=== PATIENT | female | born 1980 | race Caucasian/White ===

== ENCOUNTER 2017-06-25 16:18 | Emergency (ER) | payer BC ==
[2017-06-25 17:15] VITALS: BP 111/74
--- NOTE | 2017-06-25 17:23 | UC ---
Throat Pain/Nasal Lucien HPI - HPI Summary HPI Summary: Pt presents with fever, sore throat, and body aches since yesterday. 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 Has been taking ibuprofen for her fever and discomfort. Denies sinus symptoms, cough, SOB, chest pain, abdominal pain, n/v/d/c. - History of Current Complaint Chief Complaint: UCGeneralIllness Stated Complaint: SORE THROAT, FEVER, CHILLS Time Seen by Provider: 06/25/17 17:22 Hx Obtained From: Patient Hx Last Menstrual Period: 06/15/17 Onset/Duration: Sudden Onset Severity: Severe Pain Intensity: 9 Pain Scale Used: 0-10 Numeric - Allergies/Home Medications Allergies/Adverse Reactions: Allergies Allergy/AdvReac Type Severity Reaction Status Date / Time No Known Allergies Allergy Verified 10/12/12 11:13 Home Medications: Home Medications Ibuprofen 400 mg PO Q8HR 06/25/17 [History Confirmed 06/25/17] Norgestimate-Ethinyl Estradiol [Ortho-Cyclen 28 Tablet] 1 each PO DAILY [History Confirmed 06/25/17] Venlafaxine TAB (NF) [Effexor TAB (NF)] 50 mg PO DAILY 06/25/17 [History Confirmed 06/25/17] PMH/Surg Hx/FS Hx/Imm Hx Previously Healthy: Yes Psychological History: Anxiety - Surgical History Surgical History: Yes Surgery Procedure, Year, and Place: 1990 t/a - Family History Known Family History: Positive: None - Social History Occupation: Employed Full-time Lives: With Family Alcohol Use: Occasionally Substance Use Type: None Smoking Status (MU): Never Smoked Tobacco - Immunization History Most Recent Tetanus Shot: unknown Review of Systems Constitutional: Fever Skin: Negative Eyes: Negative ENT: Sore Throat Respiratory: Negative Cardiovascular: Negative Gastrointestinal: Negative Neurovascular: Negative Musculoskeletal: Negative Neurological: Negative Psychological: Negative All Other Systems Reviewed And Are Negative: Yes Physical Exam - Summary Physical Exam Summary: GENERAL: NAD. WDWN. No pain distress. SKIN: No rashes, sores, ulcers, masses, lesions. HEENT: Head: AT/NC Eyes: Conjunctiva clear without inflammation or discharge. Ears: Hearing grossly normal. TMs intact, no bulging, erythema, or edema. Nose: Nasal mucosa pink and moist. NTTP maxillary and frontal sinus. Throat: Posterior oropharynx moderate erythema and 2+ tonsillar enlargement. No exudates. Uvula midline. No hoarse voice or muffled voice. NECK: Supple. TTP anterior LAD. CHEST: CTAB. No r/r/w. No accessory muscle use. Breathing comfortably and in no distress. CV: RRR. Without m/r/g. Pulses intact. Brisk cap refill. NEURO: Alert. CN II-XII grossly intact. PSYCH: Age appropriate behavior. Triage Information Reviewed: Yes Vital Signs: Initial Vital Signs Temp 101.1 F 06/25/17 17:08 Pulse 114 06/25/17 17:08 Resp 20 06/25/17 17:08 BP 111/74 06/25/17 17:08 Pulse Ox 100 06/25/17 17:08 Throat Pain/Nasal Course/Dx - Course Course Of Treatment: POC strep positive. POC flu negative. Amoxicillin - Differential Dx/Diagnosis Provider Diagnoses: Strep pharyngitis Discharge - Sign-Out/Discharge Documenting (check all that apply): Discharge/Admit/Transfer - Discharge Plan Condition: Stable Disposition: HOME Prescriptions: Amoxicillin PO (*) [Amoxicillin 500 MG CAP*] 500 mg PO Q12H #20 cap Patient Education Materials: Strep Throat (DC) Referrals: Oumou Riggs MD [Primary Care Provider] - Additional Instructions: If you develop a fever, shortness of breath, chest pain, new or worsening symptoms - please call your PCP or go to the ED. - Billing Disposition and Condition Condition: STABLE Disposition: HOME
== END 2017-06-25 17:49 | disposition home or self-care (01) ==
LOC: UCCORT 16:18
DX: J02.0 Streptococcal pharyngitis (principal)
CPT/HCPCS: 87502; 87651; 99202; G0463

== ENCOUNTER 2017-10-24 20:13 | Emergency (ER) | payer BC ==
[2017-10-24 20:32] VITALS: BP 128/83
[2017-10-24] MEDS ORDERED: Amoxicillin/Clavulanate TAB* 875 MG PO ONE (20:49)
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
== END 2017-10-24 20:56 | disposition home or self-care (01) ==
LOC: UCCORT 20:13
DX: H65.92 Unspecified nonsuppurative otitis media, left ear (principal)
CPT/HCPCS: 99212; A9270-GY; G0463

== ENCOUNTER 2017-12-23 19:41 | Emergency (ER) | payer BC, OTHER ==
--- OUTSIDE RECORDS SUMMARY | 2017-12-23 20:02 | XMS REPORT ---
:1980 External Reference #:[id number] Author Organization [facility] Address [address], [address] [place] [address] Phone [phone] Care Team Providers Name Role Phone Oumou Riggs MD Care Team Information Engagement Manager Unavailable Oumou Riggs MD Primary Care Physician Unavailable Payers Type Date Identification Numbers Payment Provider Subscriber Commercial Policy Number: [id number] Vel Will PayID: [id number] [address] [address] [place] [address] Problems Date Description Provider Status Onset: 11/11/2017 Closed fracture of lateral malleolus Chantal Feliz PA Active Family History Date Family Member(s) Problem(s) Comments General Lung Cancer General Heart Attack General Heart Disease Father Alive Mother Alive Mother cataract Paternal Grandfather Alive Paternal Grandmother Alive Maternal Grandfather due to Unknown Causes () Maternal Grandmother Lung Cancer Maternal Grandmother due to Lung Cancer () Social History Type Date Description Comments Lives With Kiet Barton 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 [employer]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 Cigarette Use Never Smoked Cigarettes ETOH Use Currently consumes alcohol socially Recreational Drug Use Denies Drug Use Smoking Patient has never smoked Exercise Type/Frequency Does not exercise Allergies, Adverse Reactions, Alerts Date Description Reaction Status Severity Comments 11/04/2017 NKDA active Medications Medication Date Status Form Strength Qnty SIG Indications Ordering Provider Venlafaxine HCL Active Caps ER 150mg Keely Oumou ER 0 24HR MD Kamryn Venlafaxine HCL Active Caps ER 37.5mg Risarpita, Oumou ER 0 24HR MD Kamryn Vital Signs Date Vital Result Comment 11/24/2017 BP Systolic Sitting Right Arm 114 mmHg BP Diastolic Sitting Right Arm 77 mmHg Body Temperature 98.0 F Heart Rate 81 /min Respiratory Rate 18 /min Height 63 inches 5'3" Weight 154.50 lb BMI (Body Mass Index) 27.4 kg/m2 BSA (Body Surface Area) 1.73 m2 [place] body weight in kilograms 52 O2 % BldC Oximetry 96 % 11/11/2017 BP Systolic 117 mmHg BP Diastolic 75 mmHg Body Temperature 98.2 F Heart Rate 84 /min Height 63 inches 5'3" Weight 149.00 lb BMI (Body Mass Index) 26.4 kg/m2 BSA (Body Surface Area) 1.71 m2 [place] body weight in kilograms 52 O2 % BldC Oximetry 95 % 11/04/2017 BP Systolic 143 mmHg BP Diastolic 81 mmHg Body Temperature 98.5 F Heart Rate 82 /min Height 63 inches 5'3" Weight 143.00 lb BMI (Body Mass Index) 25.3 kg/m2 BSA (Body Surface Area) 1.68 m2 [place] body weight in kilograms 52 O2 % BldC Oximetry 99 % Pain Level 0 Results Description No Information Procedures Date CPT Code Description Status 11/24/2017 53670 Radiology, Ankle Complete Completed 11/04/2017 38381 Radiology, Ankle Complete Completed 11/04/2017 00123 Fracture closed distal fib w/o manipulation Completed Encounters Type Date Location Provider CPT E/M Dx Office Visit 11/04/2017 2:15p [place] [address] [id number] Plan of Care Future Appointment(s):12/08/2017 2:30 pm - Chantal Feliz PA at Orthopa[facility] Xdnsco0011/24/2017 - Chantal Feliz [id number] Nondisp fx of lateral malleolus of left fibula, init
--- OUTSIDE RECORDS SUMMARY | 2017-12-23 20:02 | XMS REPORT ---
:1980 External Reference #:[id number] Author Organization [facility] 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 Cigarette Use Never Smoked Cigarettes ETOH Use [...] kg/m2 BSA (Body Surface Area) 1.73 m2 [place] body weight in kilograms 52 O2 % BldC Oximetry 96 % 11/11/2017 BP Systolic 117 mmHg BP Diastolic 75 mmHg Body Temperature 98.2 F Heart Rate 84 /min Height 63 inches 5'3" Weight 149.00 lb BMI (Body Mass Index) 26.4 kg/m2 BSA (Body Surface Area) 1.71 m2 [place] body weight in kilograms 52 O2 % BldC Oximetry 95 % 11/04/2017 BP Systolic 143 mmHg BP Diastolic 81 mmHg Body Temperature 98.5 F Heart Rate 82 /min Height 63 inches 5'3" Weight 143.00 lb BMI (Body Mass Index) 25.3 kg/m2 BSA (Body Surface Area) 1.68 m2 [place] body weight in kilograms 52 O2 % BldC Oximetry 99 % Pain Level 0 Results Description No Information Procedures Date CPT Code Description Status 11/24/2017 32901 Radiology, Ankle Complete Completed 11/04/2017 77981 Radiology, Ankle Complete Completed 11/04/2017 41602 Fracture closed distal fib w/o manipulation Completed Encounters Type Date Location Provider CPT E/M Dx Office Visit 11/04/2017 2:15p [place] [address] [id number] Plan of Care Future Appointment(s):12/08/2017 2:30 pm - Chantal Feliz PA at Orthopaedic Hvvbaj2111/24/2017 - Chantal Feliz [id number] Nondisp fx of lateral malleolus of left fibula, init
--- OUTSIDE RECORDS SUMMARY | 2017-12-23 20:02 | XMS REPORT ---
:1980 External Reference #:[id number] Author Organization [facility] Address [address], [address] [place] [address] Phone [phone] Care Team Providers Name Role Phone Oumou Riggs MD Care Team Information Thermal Cutting Machine Operator Unavailable Oumou Riggs MD Primary Care Physician Unavailable Payers Type Date Identification Numbers Payment Provider Subscriber Commercial Policy Number: [id number] Vel Will PayID: [id number] [address] [address] [place] [address] Problems Date Description Provider Status Onset: 11/11/2017 Closed fracture of lateral malleolus Cahntal Feliz PA Active Family History Date Family Member(s) Problem(s) Comments General Lung Cancer General Heart Attack General Heart Disease Father Alive Mother Alive Mother cataract Paternal Grandfather Alive Paternal Grandmother Alive Maternal Grandfather due to Unknown Causes () Maternal Grandmother Lung Cancer Maternal Grandmother due to Lung Cancer () Social History Type Date Description Comments Lives With Kiet Barton 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 Cigarette Use Never Smoked Cigarettes ETOH Use [...] kg/m2 BSA (Body Surface Area) 1.73 m2 [place] body weight in kilograms 52 O2 % BldC Oximetry 96 % 11/11/2017 BP Systolic 117 mmHg BP Diastolic 75 mmHg Body Temperature 98.2 F Heart Rate 84 /min Height 63 inches 5'3" Weight 149.00 lb BMI (Body Mass Index) 26.4 kg/m2 BSA (Body Surface Area) 1.71 m2 [place] body weight in kilograms 52 O2 % BldC Oximetry 95 % 11/04/2017 BP Systolic 143 mmHg BP Diastolic 81 mmHg Body Temperature 98.5 F Heart Rate 82 /min Height 63 inches 5'3" Weight 143.00 lb BMI (Body Mass Index) 25.3 kg/m2 BSA (Body Surface Area) 1.68 m2 [place] body weight in kilograms 52 O2 % BldC Oximetry 99 % Pain Level 0 Results Description No Information Procedures Date CPT Code Description Status 11/24/2017 63093 Radiology, Ankle Complete Completed 11/04/2017 88700 Radiology, Ankle Complete Completed 11/04/2017 32800 Fracture closed distal fib w/o manipulation Completed Encounters Type Date Location Provider CPT E/M Dx Office Visit 11/04/2017 2:15p [place] [address] [id number] Plan of Care Future Appointment(s):12/08/2017 2:30 pm - Chantal Feliz PA at Orthopaedic [id number]/24/2017 - Chantal Feliz [id number] Nondisp fx of lateral malleolus of left fibula, initComments:Patient will continue in the Cam walker, she is using a IWalk crutch and doing well. Recheck back in 2 weeks with repeat xrays.
--- OUTSIDE RECORDS SUMMARY | 2017-12-23 20:02 | XMS REPORT ---
:1980 External Reference #:[id number] [facility] 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 Cigarette Use Never Smoked Cigarettes ETOH Use Currently consumes alcohol socially Recreational Drug Use Denies Drug Use Smoking Patient has never smoked Exercise Type/Frequency Does not exercise Allergies, Adverse Reactions, Alerts Date Description Reaction Status Severity Comments 11/04/2017 NKDA active Medications Medication Date Status Form Strength Qnty SIG Indications Ordering Provider Venlafaxine HCL Active Caps ER 150mg 30caps 1 by Aprylff, ER 00 24HR mouth Oumou Harry MD every day Venlafaxine HCL Active Caps ER 37.5mg 1 by Ristoff, ER 00 24HR mouth Oumou Harry MD every day Vital Signs Date Vital Result Comment 12/08/2017 BP Systolic Sitting Right Arm 118 mmHg BP Diastolic Sitting Right Arm 78 mmHg Body Temperature 98.0 F Heart Rate 79 /min Respiratory Rate 16 /min Height 63 inches 5'3" Weight 155.00 lb BMI (Body Mass Index) 27.5 kg/m2 BSA (Body Surface Area) 1.74 m2 [place] body weight in kilograms 52 O2 % BldC Oximetry 97 % 11/24/2017 BP Systolic Sitting Right Arm 114 mmHg BP Diastolic Sitting Right Arm 77 mmHg Body Temperature 98.0 F Heart Rate 81 /min Respiratory Rate 18 /min Height 63 inches 5'3" Weight 154.50 lb BMI (Body Mass Index) 27.4 kg/m2 BSA (Body Surface Area) 1.73 m2 [place] body weight in kilograms 52 O2 % BldC Oximetry 96 % 11/11/2017 BP Systolic 117 mmHg BP Diastolic 75 mmHg Body Temperature 98.2 F Heart Rate 84 /min Height 63 inches 5'3" Weight 149.00 lb BMI (Body Mass Index) 26.4 kg/m2 BSA (Body Surface Area) 1.71 m2 [place] body weight in kilograms 52 O2 % BldC Oximetry 95 % 11/04/2017 BP Systolic 143 mmHg BP Diastolic 81 mmHg Body Temperature 98.5 F Heart Rate 82 /min Height 63 inches 5'3" Weight 143.00 lb BMI (Body Mass Index) 25.3 kg/m2 BSA (Body Surface Area) 1.68 m2 [place] body weight in kilograms 52 O2 % BldC Oximetry 99 % Pain Level 0 Results Description No Information Procedures Date CPT Code Description Status 12/08/2017 88726 Radiology, Ankle Complete Completed 11/24/2017 39063 Radiology, Ankle Complete Completed 11/04/2017 17281 Radiology, Ankle Complete Completed 11/04/2017 39810 Fracture closed distal fib w/o manipulation Completed Encounters Type Date Location Provider CPT E/M Dx Office Visit 11/04/2017 2:15p [place] [address] [id number] Plan of Care 12/08/2017 - Chantal Feliz [id number] Nondisp fx of lateral malleolus of left fibula, initComments:At this point I recommended continued Cam Walker use but she may bear weight as tolerated. I do recommend range of motion so she can take it off several times a day to work on that. Ice and elevate.Return for recheck in 2-3 weeks.AllFollow up:2wk
[2017-12-23 20:05] VITALS: BP 119/82
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
--- NOTE | 2017-12-24 07:38 | RAD ---
INDICATION: Left ankle injury. TECHNIQUE: 3 views of the left ankle were obtained. FINDINGS: There is diffuse soft tissue swelling present. There is oblique intra-articular fracture of the distal fibula. The distal fragment is slightly displaced lateral approximately 1 cortical diameter IMPRESSION: SLIGHTLY DISPLACED OBLIQUE INTRA-ARTICULAR FRACTURE OF THE DISTAL FIBULA. R0
--- NOTE | 2017-12-24 13:17 | UC ---
- Progress Note Progress Note: X-ray reading by radiologist of December 23, 2017 ankle x-ray of the left ankle was read as a fibular. This is the same reading as the provider on December 23, 2017. Treatment was initiated based on this is diagnosis so there are no discrepancies. Discharge - Sign-Out/Discharge Documenting (check all that apply): Patient Departure All imaging exams completed and their final reports reviewed: Yes - Discharge Plan Condition: Stable Disposition: HOME Patient Education Materials: Ankle Fracture (DC), Splint Care (ED) Referrals: Romulo Ortiz MD [Medical Doctor] - 1 Day Additional Instructions: KEEP SPLINT IN PLACE AT ALL TIMES. DO NO PUT WEIGHT ON THE LEFT LEG. - Billing Disposition and Condition Condition: STABLE Disposition: Home
== END 2017-12-23 21:09 | disposition home or self-care (01) ==
LOC: UCCORT 19:41
DX: S82.832A Other fracture of upper and lower end of left fibula, initial encounter for closed fracture (principal); W22.8XXA Striking against or struck by other objects, initial encounter; Y92.219 Unspecified school as the place of occurrence of the external cause; Y99.0 Civilian activity done for income or pay
CPT/HCPCS: 99212; G0463